=== PATIENT | female | born 1960 | race Hispanic/Latino ===

== ENCOUNTER 2022-01-06 10:02 | Emergency (ER) | payer OTHER ==
[~2022-01-06] VITALS: Ht 162.6 cm; Wt 104.3 kg
[2022-01-06] MEDS ORDERED: NAPROXEN 500 MG TABLET PO SCH (10:42)
[2022-01-06] MEDS ORDERED: NAPR375T6 PO (11:45)
[2022-01-06 12:01] VITALS: BP 124/64
== END 2022-01-06 12:36 | disposition home or self-care (01) ==
LOC: EDH 10:05
DX: S90.32XA Contusion of left foot, initial encounter (principal); X50.1XXA Overexertion from prolonged static or awkward postures, initial encounter; Y93.89 Activity, other specified; Y92.89 Other specified places as the place of occurrence of the external cause; Y99.8 Other external cause status
CPT/HCPCS: 73610; 73630